=== PATIENT | female | born 1985 | race Caucasian/White ===

== ENCOUNTER 2019-08-14 17:51 | Inpatient (IN) | payer BC, SELFPAY ==
[2019-08-14] VITALS (7 sets, daily range): BP systolic 143–164; BP diastolic 94–108; PULSE 83–95; TEMP 36.9; BMI 38.0
--- NOTE | 2019-08-14 18:37 | LDADM ---
This patient, Asia Victor, was admitted to Labor/Delivery/Recovery 108 on 08/14/19 at 17:51. Plans for labor, pain management and were discussed with patient. Patient/family oriented to hospital policies and general routines including ID bracelet, bed and alarms, visiting hours, pain management, procedures, bathroom and other care routines, personal items, smoking policy, room service/diet and guest tray routines, security routines, and visiting hours. Patient/Family are encouraged to report perceived risks to care and to ask questions if they do not understand what they are told or what they should do. See OBIX for further documentation.
[2019-08-14] MEDS: DINOPROSTONE 10 MG VAG INSERT VAGINAL (19:09)
[2019-08-14 19:19] LABS: Basophils Percent Auto 0.2 % (0.2-1.2); Eosinophils Absolute Auto 0.5 K/mm3 (0-0.3); Eosinophils Percent Auto 4.8 % (0-4.4); Hematocrit 34.7 % (37.0-47.0); Hemoglobin 12.1 g/dL (12.0-15.0); Immature Granulocyte Absolute 0.09 K/mm3 (0.00-0.031); Immature Granulocyte Percent A 0.9 % (0-0.5); Lymphocytes Absolute Auto 2.05 K/mm3 (0.9-3.2); Lymphocytes Percent Auto 20.2 % (18.3-44.2); Mean Corpuscular HGB Conc 34.9 g/dl (32-36); Mean Corpuscular Hemoglobin 30.9 pg (26-34); Mean Corpuscular Volume 88.7 fl (80-100); Monocytes Absolute Auto 0.7 K/mm3 (0.1-0.6); Monocytes Percent Auto 6.8 % (2.6-8.5); Neutrophils Absolute Auto 6.8 K/mm3 (1.3-6.7); Neutrophils Percent Auto 67.1 % (45.5-73.1); Platelet Count Result 182 k/mm3 (150-375); Red Blood Count 3.91 M/mm3 (4.2-5.4); Red Cell Distribution Width 12.7 % (11.5-14.5); White Blood Count 10.1 K/mm3 (4.5-10.0)
[2019-08-14 20:08] LABS: Alanine Aminotransferase 27 U/L (4-35); Albumin Level 3.8 g/dL (3.5-5.1); Alkaline Phosphatase 192 U/L (38-126); Aspartate Amino Transferase 42 U/L (14-36); Bilirubin,Total 0.2 mg/dL (0.2-1.3); Blood Urea Nitrogen 10 mg/dL (7-17); Calcium 9.1 mg/dL (8.4-10.2); Carbon Dioxide 19 mmol/L (22-30); Chloride 106 mmol/L (98-107); Estimated CRCL calculation 124 ml/min; Estimated Glomerular Filt Rate > 60; Glucose 99 mg/dL (65-105); Potassium 4.4 mmol/L (3.4-5.0); Sodium 132 mmol/L (137-145)
[2019-08-14 20:09] LABS: Uric Acid 4.8 mg/dL (2.5-7.5)
[2019-08-15] VITALS (106 sets, daily range): BP systolic 128–174; BP diastolic 73–142; PULSE 78–152; TEMP 36.5–37.6; O2SAT 97–100
[2019-08-15] MEDS: NIFEdipine 10 MG CAPSULE (02:00)
[2019-08-15] MEDS: OXYTOCIN 30 UNITS/NS 500 ML 30 UNITS/500 ML BAG 6 UNITS IV CONT (05:38)
[2019-08-15] MEDS: LACTATED RINGERS 1,000 ML 125 ML IV CONT ×3 (05:38→12:38)
[2019-08-15] MEDS: ACETAMINOPHEN 500 MG TABLET 1000 MG PO (06:26)
[2019-08-15 07:21] LABS: Rapid Plasma Reagin Non-Reactive (NonReactive)
[2019-08-15] MEDS: LABETALOL HCL INJ 100 MG/20 ML VIAL 20 MG IV PUSH (07:35)
--- NOTE | 2019-08-15 08:27 | PM.IMHP ---
H&P: HPI History of Present Illness Chief complaint: iol Narrative: 33 y/o primigravida at 40 weeks gestation based on LMP 11/08/18 giving an EDC of 08/15/19. has had some intermittently elevated bp readings in the office, but these have always normalized on repeat measurement. No headaches, no visual field change, good movement. GBS neg. Ultrasound at 20 weeks showed mildly dilated right renal pelvis, but this had resolved by the 28 week ultrasound exam. She is here for induction of labor. Cervidil overnight, has been withdrawn. BP has been gradually increasing here, and she was given one dose of nifedipine 10 mg at 0200. BP initially responded, but has crept up again. Also she is now complaining of a frontal headache, mildly relieved by Tylenol. Review of Systems Review of Systems: All systems reviewed & are unremarkable except as noted in HPI and below PMFSH Family History Family History Mother Hypertension Grandparent Colon cancer Bone cancer Breast cancer Sibling Scoliosis Social History Social History Smoking status: Never smoker Substance use: never Spiritual care concerns: No Meds Home Medications and Allergies Home Medications Medication Instructions Recorded Confirmed Type pedi multivit no.140-iron fum 1 mg PO DAILY 07/16/19 08/14/19 History [Child Chewable Vitamn Complete] omeprazole magnesium [Prilosec OTC] 20 mg PO DAILY PRN 08/14/19 08/14/19 History Allergies Allergy/AdvReac Type Severity Reaction Status Date / Time adhesive Allergy Hives Verified 07/16/19 16:03 chicken derived Allergy Vomiting Verified 08/14/19 18:28 egg Allergy Vomiting Verified 07/16/19 16:03 Vital Signs Vital Signs - 24 hr 08/14/19 19:14 08/14/19 19:15 08/14/19 19:30 Temperature 36.9 C Pulse Rate 87 90 Blood Pressure 164/108 H 147/94 H 08/14/19 20:00 08/14/19 20:30 08/14/19 21:00 Temperature Pulse Rate 95 83 92 Blood Pressure 149/104 H 164/97 H 143/96 H 08/14/19 23:00 08/15/19 00:14 08/15/19 00:30 Temperature 36.9 C Pulse Rate 99 92 Blood Pressure 153/100 H 150/100 H 08/15/19 01:00 08/15/19 01:30 08/15/19 01:37 Temperature Pulse Rate 93 94 96 Blood Pressure 149/110 H 153/108 H 158/109 H 08/15/19 02:30 08/15/19 02:35 08/15/19 02:36 Temperature 36.5 C Pulse Rate 103 H 116 H Blood Pressure 170/114 H 149/109 H 08/15/19 03:10 08/15/19 03:12 08/15/19 03:48 Temperature Pulse Rate 111 H 103 H 96 Blood Pressure 165/115 H 161/107 H 152/102 H 08/15/19 04:01 08/15/19 04:59 08/15/19 05:30 Temperature 37.4 C Pulse Rate 100 110 H Blood Pressure 150/103 H 160/98 H 08/15/19 05:40 08/15/19 05:45 08/15/19 06:00 Temperature Pulse Rate 109 H 103 H 89 Blood Pressure 158/103 H 152/96 H 154/97 H 08/15/19 06:30 08/15/19 06:49 08/15/19 07:00 Temperature 37.1 C Pulse Rate 100 87 Blood Pressure 149/92 H 160/104 H 08/15/19 07:16 08/15/19 07:33 08/15/19 07:35 Temperature Pulse Rate 88 86 87 Blood Pressure 170/102 H 150/94 H 08/15/19 07:40 08/15/19 07:50 08/15/19 08:00 Temperature Pulse Rate 90 85 85 Blood Pressure 147/95 H 150/102 H 163/100 H 08/15/19 08:14 08/15/19 08:20 Temperature Pulse Rate 78 95 Blood Pressure 145/101 H 163/114 H Exam Const: Orientation/consciousness: patient oriented x3 Other: Well-developed, well-nourished female in no acute distress. BP 140-160/80-110. Otherwise, AVSS. Neck: Thyroid: thyroid normal Lymphatic: no lymphadenopathy noted (in neck, axilla or inguinal nodes) Resp: Effort & Inspection: normal respiratory effort Auscultation: clear to auscultation bilaterally Cardio: Rate: regular rate Rhythm: regular rhythm Heart sounds: S1 normal heart sound present and S2 normal heart sound present GI: Other: ABD: Soft, nontender, gravid. Vertex presentat
[2019-08-15 10:42] LABS: Add Urine Microscopic? YES; Appearance Urine Clear (Clear); Bacteria Urine Trace /hpf; Bilirubin Urine Negative (Negative); Blood Urine Negative (Negative); Color Urine Straw (Yellow); Glucose Urine UA Negative (Negative); Ketones Urine Negative (Negative); Leukocyte Esterase Ur Negative LEU/UL (Negative); Mucus Urine Rare /lpf; Nitrate Urine Negative (Negative); Protein Urine 3+ mg/dL (Negative); Specific Grav Ur 1.013 (1.001-1.035); Squamous Epithelial Cell Urine Rare /hpf (Few); Urobilinogen Urine Negative mg/dL (<2.0); WBC Urine 0-3 /hpf
[2019-08-15] MEDS: MAGNESIUM SULF 4 GM/WATER100ML 4 GM/100 ML BAG IVPB (12:39)
[2019-08-15] MEDS: MAGNESIUM SULF 20GM/WATER500ML 500 ML 50 MG IV CONT ×2 (13:06→22:55)
[2019-08-15] MEDS: SODIUM CHLORIDE 0.9% IV 300 ML 600 ML I-UTERINE (15:34)
[2019-08-15] MEDS: ONDANSETRON INJ 4 MG/2 ML VIAL IV PUSH (18:43)
--- NOTE | 2019-08-15 22:47 | PM.OBPNLAB ---
Pain Control Date/time seen: 08/15/19 22:47 Comments: Feels pressure. Has just started pushing. Pelvic Exam Dilation (cm): 10 Effacement (%): 100 station: +2 Contractions Contraction frequency: 3 Contraction pattern: Regular Status status: Category l Assessment and Plan Comments: Continue pushing. Anticipate .
[2019-08-15] MEDS: OXYTOCIN 30 UNITS/NS 500 ML 30 UNITS/500 ML BAG 125 UNITS IV CONT (23:51)
--- NOTE | 2019-08-15 23:54 | PM.OBPRVD ---
OB - Delivery Note Procedure Delivery date: 08/15/19 Procedure: Induction of labor with events: Pre-Eclampsia Intrapartal events: None Induction method: AROM, per pitocin protocol and other (Cervidil) Delivery monitor: external FHT, external uterine and internal uterine Route of delivery: Laceration description: Perineal - 2nd Degree Delivery repair: vicryl (3-0) Specimen: Yes (cord blood, placenta) Estimated blood loss (mL): 310 Anesthesia type: Local (1% lidocaine) Disposition: PACU Complications: None Narrative: 33 y/o G1 at 40 weeks gestation who presented to the hospital for induction of labor. Cervidil was placed overnight. Blood pressures increased and she developed a headache, which did improve with Fioricet. Oxytocin was administered intravenously. Amniotomy was performed with return of clear fluid. She received an epidural for pain control. She received IV magnesium sulfate for seizure prophylaxis. Her labor progressed and her cervix dilated completely. She pushed with good effort and delivered the 's head to the perineum, followed by the body. The nose and mouth were bulb suctioned. After a delay, the cord was clamped and cut. The infant was handed off the field. Cord blood was collected. The placenta delivered spontaneously and was grossly normal in appearance. The usual 3 vessel cord was noted. A second degree midline perineal laceration was sustained. This was infiltrated with 20mL of 1% lidocaine for additional anesthesia and reapproximated using 3 0 Vicryl in the usual layered fashion. Excellent hemostasis resulted as did excellent reapproximation of the normal anatomy. Needle and instrument counts were correct. The patient was taken to recovery room in stable condition. The went to the nursery in stable condition. I was present and scrubbed for the entire delivery. [place] Baby Date of : 08/15/19 Time of : 23:24 Weeks of gestation at delivery: 40 gender: Female Weight (pounds): 7 Weight (ounces): 7 presentation: vertex Placenta delivery description: Spontaneous and Normal Configuration cord vessel description: 3 Vessels score one minute: 8 score five minutes: 9
--- NOTE | 2019-08-15 23:58 | PM.OBDSVD ---
DS: Diagnosis Admitting Diagnosis Admitting Diagnosis: Encounter for supervision of normal , unspecified, unspecified trimester Discharge Diagnosis (1) Preeclampsia: Code(s): O14.90 - Unspecified pre-eclampsia, unspecified trimester Status: Acute (2) Term : Code(s): Z34.90 - Encounter for supervision of normal , unspecified, unspecified trimester Status: Acute (3) (normal spontaneous vaginal delivery): Code(s): O80 - Encounter for full-term uncomplicated delivery Status: Acute OB - DS: Summary OB Procedures : PIH Mgmt OB Procedures Intrapartum: Spontaneous Vag Delivery OB Procedures: : None Time Spent with Patient Time attestation: Total time spent providing and/or coordinating discharge services: DS: Data Data Completed and Pending Labs on day of discharge: Labs from last 24 hours 08/15/19 08/14/19 10:09 19:02 Urine Color Straw Urine Appearance Clear Urine pH 7.0 Ur Specific [place] 1.013 Urine Protein 3+ H Urine Glucose (UA) Negative Urine Ketones Negative Ur Blood (Man) Negative Urine Nitrate Negative Urine Bilirubin Negative Urine Urobilinogen Negative Leukocyte Esterase Rfl Negative Urine RBC 6-10 H Urine WBC 0-3 Ur Squamous Epith Cells Rare Urine Bacteria Trace Hyaline Casts 3-4 H Urine Mucus Rare RPR Non-reactive Discharge Plan Discharge Attending physician on discharge: Jose Angel Lino Discharging Clinician: Jose Angel Lino Patient Disposition: Home, Self-Care Activity: pelvic rest Diet: regular Discharge Instructions: Call or return if temperature above 100.4? F, increased abdominal pain, increased vaginal bleeding or any new problems. Stand Alone Forms: General Discharge Information Follow-up/Referrals: Jose Angel Lino MD [Physician] - (6 weeks) Discharge Medications: New ibuprofen 600 mg tablet 600 mg PO Q6H PRN (Reason: cramps) Qty: 30 RF: 0 ferrous sulfate 325 mg (65 mg iron) tablet 325 mg PO DAILY Qty: 30 RF: 0 No Action Child Chewable Vitamn Complete 18 mg iron Tablet,Chewable 1 mg PO DAILY RF: 0 omeprazole magnesium [Prilosec OTC] 20 mg Tablet,Delayed Release (Dr/Ec) 20 mg PO DAILY PRN (Reason: Acid Reflux) RF: 0 Date of admission: 05/14/20 17:51 Primary Care Provider: Paul,Tomasa Cohen Admitting Provider: Jose Angel Lino Attending physician on admission: Jose Angel Lino
[2019-08-16] VITALS (15 sets, daily range): BP systolic 108–155; BP diastolic 66–105; PULSE 89–123; RESP 12–16; TEMP 36.6–37; O2SAT 97–100
[2019-08-16] MEDS: IBUPROFEN 600 MG TABLET PO ×2 (01:03→16:41)
[2019-08-16] MEDS: LACTATED RINGERS 1,000 ML 75 ML IV CONT ×2 (01:57→12:40)
[2019-08-16] MEDS: WITCH HAZEL 40 PADS 1 PAD TOPICAL (01:57)
[2019-08-16] MEDS: BENZOCAINE 20% AER SPR (*SP) 56 GM CAN 1 SPRAY TOPICAL (01:57)
--- NOTE | 2019-08-16 02:17 | PC.NURSE ---
This patient, Asia Victor, was received from Labor and Delivery on 08/16/19 at 0217. Personal belongings list checked and signed. Patient/family oriented to unit policies and routines
[2019-08-16 06:06] LABS: Basophils Percent Auto 0.2 % (0.2-1.2); Hematocrit 25.2 % (37.0-47.0); Hemoglobin 8.6 g/dL (12.0-15.0); Immature Granulocyte Absolute 0.14 K/mm3 (0.00-0.031); Immature Granulocyte Percent A 0.6 % (0-0.5); Immature Platelet Fraction Pct 11.2 % (0.9-11.2); Lymphocytes Absolute Auto 1.52 K/mm3 (0.9-3.2); Lymphocytes Percent Auto 6.5 % (18.3-44.2); Mean Corpuscular HGB Conc 34.1 g/dl (32-36); Mean Corpuscular Hemoglobin 30.8 pg (26-34); Mean Corpuscular Volume 90.3 fl (80-100); Mean Platelet Volume 13.3 fl (7.4-10.4); Monocytes Absolute Auto 1.1 K/mm3 (0.1-0.6); Monocytes Percent Auto 4.8 % (2.6-8.5); Neutrophils Absolute Auto 20.5 K/mm3 (1.3-6.7); Neutrophils Percent Auto 87.9 % (45.5-73.1); Platelet Count Result 170 k/mm3 (150-375); Red Blood Count 2.79 M/mm3 (4.2-5.4); Red Cell Distribution Width 12.7 % (11.5-14.5); White Blood Count 23.3 K/mm3 (4.5-10.0)
[2019-08-16 06:40] LABS: Alanine Aminotransferase 28 U/L (4-35); Albumin Level 2.5 g/dL (3.5-5.1); Alkaline Phosphatase 147 U/L (38-126); Aspartate Amino Transferase 47 U/L (14-36); Bilirubin,Total 0.1 mg/dL (0.2-1.3); Blood Urea Nitrogen 13 mg/dL (7-17); Calcium 6.6 mg/dL (8.4-10.2); Carbon Dioxide 18 mmol/L (22-30); Chloride 102 mmol/L (98-107); Estimated CRCL calculation 110 ml/min; Estimated Glomerular Filt Rate > 60; Glucose 129 mg/dL (65-105); Potassium 3.9 mmol/L (3.4-5.0); Sodium 128 mmol/L (137-145)
[2019-08-16] MEDS: MULTIVIT/MIN/PREN/FOL AC/IRON TABLET 1 TAB PO (07:50)
[2019-08-16] MEDS: DOCUSATE SODIUM 100 MG CAPSULE PO ×2 (07:50→16:41)
[2019-08-16] MEDS: POLYSACCHARIDE IRON COMPLEX 150 MG CAPSULE PO ×2 (07:50→16:41)
--- NOTE | 2019-08-16 09:19 | WPDANLDPN2 ---
Anes-Prog Note L&D Date/Time: 08/16/19 09:19 Comfortable throughout: labor and delivery Neuraxial method: epidural Epidural/Spinal procedure site: clean & non-tender Neuro status: Neuro function grossly intact. Cardiovascular status: normal Respiratory status: normal Airway patency: baseline Mental status: baseline Post-Op hydration status: normal Vital Signs: Last Vital Signs Temp 98.7 F 08/15/19 21:08 Pulse 105 H 08/16/19 01:45 BP 140/90 08/16/19 01:45 Pulse Ox 98 08/15/19 10:04 I/O: Intake & Output 08/15/19 08/16/19 08/16/19 23:59 07:59 15:59 Intake Total 1000 1400 Output Total 1168 Balance 1000 232 Patient feedback: Patient satisfied with anesthetic care.
[2019-08-16] MEDS: MAGNESIUM SULF 20GM/WATER500ML 500 ML 25 MG IV CONT (09:52)
[2019-08-16] MEDS: MAGNESIUM SULF 20GM/WATER500ML 500 ML 50 MG IV CONT (09:52)
[2019-08-17] MEDS: ACETAMINOPHEN 325 MG TABLET 650 MG PO (04:35)
[2019-08-17] MEDS: IBUPROFEN 600 MG TABLET PO (04:35)
[2019-08-17 04:41] VITALS: BP 142/97; PULSE 104; RESP 16; O2SAT 100
[2019-08-17 07:30] VITALS: BP 136/94; PULSE 97; RESP 16; TEMP 36.7; O2SAT 98
[2019-08-17] MEDS: DOCUSATE SODIUM 100 MG CAPSULE PO (07:30)
[2019-08-17] MEDS: POLYSACCHARIDE IRON COMPLEX 150 MG CAPSULE PO (07:30)
[2019-08-17] MEDS: MULTIVIT/MIN/PREN/FOL AC/IRON TABLET 1 TAB PO (07:30)
--- NOTE | 2019-08-17 11:07 | PM.OBPNVD ---
OB - PN: Subj Subjective Date/time seen: 08/17/19 11:07 Narrative: Pain OK. Would like to go home. OB - PN: Obj Data Labs CBC & Chem 7: 08/16/19 05:52 08/16/19 05:52 OB - PN A/P Plan Comments: A: PPD#2, doing well. Preeclampsia resolving. BP OK without meds. P: Home to f/u bp check in 1-2 days, f/u exam in office in 6 weeks. Exam Psych: Other: AVSS I/O great ABD soft, nontender, fundus firm EXT nontender
--- NOTE | 2019-08-17 14:22 | PC.NURSE ---
Patient viewed the discharge video Mother & Baby Care, The First Two Weeks . Patient was given the opportunity and encouraged to ask questions. Patient verbalized understanding of information shared and has been given the mother/baby guide for home reference.
[2019-08-18 08:32] VITALS: BP 151/96; PULSE 100; RESP 18; TEMP 36.7
== END 2019-08-17 14:50 | disposition home or self-care (01) | DRG 807 ==
LOC: ANHLDR 08-15 23:59 → ANHOB2 08-16 02:54
PROVIDERS: Admitting Provider Obstetrics & Gynecology; PCP Family Medicine; Visit Provider Obstetrics & Gynecology
DX: O13.4 Gestational [pregnancy-induced] hypertension without significant proteinuria, complicating childbirth (principal); Z37.0 Single live birth; O14.04 Mild to moderate pre-eclampsia, complicating childbirth; Z3A.40 40 weeks gestation of pregnancy; O76 Abnormality in fetal heart rate and rhythm complicating labor and delivery; O70.1 Second degree perineal laceration during delivery
CPT/HCPCS: 36415; 80053; 81001; 84550; 85025; 85055; 86592; 86850; 86900; 86901; 88307; A9270; J2405; J2590; J2795; J3475; J7030; J7120

== ENCOUNTER 2022-05-15 15:54 | Emergency (ER) | payer OTHER, SELFPAY ==
[2022-05-15 16:00] VITALS: BP 138/90; PULSE 74; RESP 20; TEMP 37; O2SAT 100
--- NOTE | 2022-05-15 16:24 | ED.URI ---
HPI - URI/Sore Throat General Chief Complaint: Upper Respiratory Infection Stated Complaint: Runny Nose/Body Aches Time Seen by Provider: 05/15/22 16:24 Source: patient, RN notes reviewed and old records reviewed Mode of arrival: ambulatory Limitations: no limitations History of Present Illness HPI Narrative: 36 year old female who presents to [facility] care with complaints of sore throat, low grade fevers,cold sweats,headache,and body aches for the past 3 days. Patient reports that she has 2 children at home with strep throat. Patient reports that she has been taking Tylenol for her symptoms. Patient denies any cough or any shortness of breath.Patient reports that she has had COVID vaccination and has already had flu this year. MD elicited complaint: sore throat Onset (ago): day(s) (3) Pain scale (0-10): 5 Able to tolerate fluids by mouth: Yes Treatments prior to arrival: acetaminophen Related Data Allergies Allergy/AdvReac Type Severity Reaction Status Date / Time paraben Allergy Mild Unknown Verified 05/15/22 16:17 adhesive Allergy Hives Verified 05/15/22 16:17 chicken derived Allergy Vomiting Verified 05/15/22 16:17 egg Allergy Vomiting Verified 05/15/22 16:17 Review of Systems Review of Systems: CONSTITUTIONAL: Reports malaise, chills, sweats, or fever. EYES: Denies visual changes, redness, or discharge. ENT: Reports rhinorrhea, congestion, no sinus pain,no otalgia positive sore throat. CARDIOVASCULAR: Denies chest pain, palpitations, or edema. RESPIRATORY: Reports no cough.? Denies dyspnea. GASTROINTESTINAL: Denies abdominal pain, nausea, vomiting, diarrhea SKIN: Denies rash or itching. MUSCULOSKELETAL: positive for myalgia. NEUROLOGIC: Positive headache. All systems reviewed & are unremarkable except as noted in HPI and below PMFSH Past Medical History Medical History (Updated 05/16/22 @ 21:53 by Magda Sepulveda NP) Dermatographism Environmental allergies Family History Family History Mother Hypertension Grandparent Colon cancer Bone cancer Breast cancer Sibling Scoliosis Mother Hypertension Grandparent Family history of malignant neoplasm of breast Social History Social History (Updated 05/16/22 @ 21:54 by Magda Sepulveda NP) Smoking status: Never smoker Alcohol intake: current Substance use: never Living arrangements: with family Gender identity (if verbalized by the patient): Female Spiritual care concerns: No Comments At time of signature, agree with nursing past medical, surgical, social and family history. There is no relevant family history pertinent to the presenting complaint Exam Narrative: GENERAL: Well-appearing, well-nourished, and in no acute distress. HEAD: Normocephalic EYES: PERRLA, conjunctivae clear ENT: Nares clear, turbinates edematous and erythematous, clear discharge. Mucous membranes moist. TM pearly ocampo with dull light reflex bilaterally; no tragal tenderness. Oropharynx erythematous without lesions. Tonsils red enlarged and without exudate, no drooling, no hoarseness, no trismus, uvula midline.painful swallowing NECK: Supple. lymphadenopathy CHEST: Clear to auscultation, breath sounds equal. No wheezing, rhonchi, rales, or stridor. No respiratory distress, speaks in full sentences.no cough, SAO2 100% on room air HEART: Regular rate and rhythm. No murmur heard. SKIN: Warm, dry, no rash. NEURO: Alert and oriented x3. PSYCH: Normal mood and affect Course Course Emergency Course: Patient is aware of diagnosis, understands and agrees to treatment plan.? Anticipatory guidance given.? Patient agrees to follow-up as directed and is aware of reasons to seek care at the emergency department. Portions of this record may have been created with voice recognition software Level of Care: Express Care Visit Vital Signs Vital signs: Vital Signs Temperature 37.0 C
--- NOTE | 2022-05-15 16:46 | ED.URI ---
HPI - URI/Sore Throat General Chief Complaint: Upper Respiratory Infection Stated Complaint: Runny Nose/Body Aches Time Seen by Provider: 05/15/22 16:24 Source: patient, RN notes reviewed and old records reviewed Mode of arrival: ambulatory Limitations: no limitations History of Present Illness MD elicited complaint: cough and sore throat Treatments prior to arrival: acetaminophen Related Data Allergies Allergy/AdvReac Type Severity Reaction Status Date / Time paraben Allergy Mild Unknown Verified 05/15/22 16:17 adhesive Allergy Hives Verified 05/15/22 16:17 chicken derived Allergy Vomiting Verified 05/15/22 16:17 egg Allergy Vomiting Verified 05/15/22 16:17 Review of Systems Review of Systems: CONSTITUTIONAL: Denies malaise, chills, sweats, or fever. EYES: Denies visual changes, redness, or discharge. ENT: Reports rhinorrhea, congestion, sinus pain, otalgia and sore throat. CARDIOVASCULAR: Denies chest pain, palpitations, or edema. RESPIRATORY: Reports cough.? Denies dyspnea. GASTROINTESTINAL: Denies abdominal pain, nausea, vomiting, diarrhea SKIN: Denies rash or itching. MUSCULOSKELETAL: Denies myalgia. NEUROLOGIC: Denies headache. All systems reviewed & are unremarkable except as noted in HPI and below PMFSH Family History Family History (System 10/07/19 @ 13:31 by Nati Márquez) Mother Hypertension Grandparent Colon cancer Bone cancer Breast cancer Sibling Scoliosis Mother Hypertension Grandparent Family history of malignant neoplasm of breast Social History Social History (System 10/07/19 @ 13:31 by Nati Márquez) Smoking status: Never smoker Alcohol intake: current Substance use: never Spiritual care concerns: No Comments At time of signature, agree with nursing past medical, surgical, social and family history. There is no relevant family history pertinent to the presenting complaint Exam Narrative: GENERAL: Well-appearing, well-nourished, and in no acute distress. HEAD: Normocephalic EYES: PERRLA, conjunctivae clear ENT: Nares clear, turbinates edematous and erythematous, clear discharge. Mucous membranes moist. TM pearly ocampo with dull light reflex bilaterally; no tragal tenderness. Oropharynx erythematous without lesions. Tonsils not enlarged and without exudate, no drooling, no hoarseness, no trismus, uvula midline. NECK: Supple. No lymphadenopathy CHEST: Clear to auscultation, breath sounds equal. No wheezing, rhonchi, rales, or stridor. No respiratory distress, speaks in full sentences. HEART: Regular rate and rhythm. No murmur heard. SKIN: Warm, dry, no rash. NEURO: Alert and oriented x3. PSYCH: Normal mood and affect Course Course Emergency Course: Patient is aware of diagnosis, understands and agrees to treatment plan.? Anticipatory guidance given.? Patient agrees to follow-up as directed and is aware of reasons to seek care at the emergency department. Portions of this record may have been created with voice recognition software Level of Care: Express Care Visit Vital Signs Vital signs: Vital Signs Temperature 37.0 C 05/15/22 16:00 Pulse Rate 74 05/15/22 16:00 Respiratory Rate 20 05/15/22 16:00 Blood Pressure 138/90 05/15/22 16:00 Pulse Oximetry 100 05/15/22 16:00 Oxygen Delivery Room Air 05/15/22 16:00 Temperature 37.0 C 05/15/22 16:00 Pulse Rate 74 05/15/22 16:00 Respiratory Rate 20 05/15/22 16:00 Blood Pressure 138/90 05/15/22 16:00 Pulse Oximetry 100 05/15/22 16:00 Oxygen Delivery Room Air 05/15/22 16:00 Reviewed MDM - URI/Sore Throat MDM Narrative Medical decision making narrative: Differential diagnosis considered: Walker virus, strep pharyngitis, allergic rhinitis, upper respiratory tract infection, sinusitis, rhinosinusitis, nasopharyngitis. viral pharyngitis, otitis media, otitis externa, pneumonia, bronchitis, viral cough syndrome, viral syndrome, and inf
== END 2022-05-15 16:53 | disposition home or self-care (01) ==
PROVIDERS: Emergency Provider Registered Nurse; PCP Family Medicine
DX: J03.90 Acute tonsillitis, unspecified (principal)
CPT/HCPCS: 87081; 87880; 99213; G0463

== ENCOUNTER 2024-02-03 09:14 | Outpatient (CLI) | payer OTHER, SELFPAY ==
[2024-02-03 10:48] LABS: Add Urine Microscopic? YES; Appearance Urine Clear (Clear); Bacteria Urine None Seen /hpf; Bilirubin Urine Negative (Negative); Blood Urine 2+ (Negative); Color Urine Yellow (Yellow); Glucose Urine UA Negative (Negative); Ketones Urine Negative (Negative); Leukocyte Esterase Ur 2+ LEU/UL (Negative); Need Manual Microscopic Reviewed; Nitrate Urine Negative (Negative); Protein Urine Negative (Negative); Specific Grav Ur 1.005 (1.001-1.035); Squamous Epithelial Cell Urine Occasional /hpf (Few); Urobilinogen Urine 0.2 mg/dL (<2.0); WBC Urine 0-5 /hpf (0-3)
--- NOTE | 2024-02-03 11:07 | PM.OBTRLD ---
OB - Triage/Final Diagnosis Visit Information Date of evaluation: 02/03/24 Reason for evaluation: threatened labor Comments/Additional reasons for admission: I have assessed the risk for this patient, Asia Victor, and determined that she would benefit from observation care. Evaluation Laboratory results: Laboratory Tests 02/03/24 10:26 Urine Color Yellow Urine Appearance Clear Urine pH 7.0 Ur Specific [place] 1.005 Urine Protein Negative Urine Glucose (UA) Negative Urine Ketones Negative Ur Blood (Man) 2+ H Urine Nitrate Negative Urine Bilirubin Negative Urine Urobilinogen 0.2 Add Ur Microanalysis Reviewed Leukocyte Esterase Rfl 2+ H Urine RBC 3-5 H Urine WBC 0-5 Ur Squamous Epith Cells Occasional Urine Bacteria None seen Urine Casts 3-5
[2024-02-03 11:24] VITALS: BP 136/85; PULSE 87
[2024-02-03 11:29] LABS: OBXCEM ROM Plus Negative (Negative)
== END 2024-02-03 10:40 | disposition home or self-care (01) ==
LOC: ANHOBOP 10:05 → ANHLDR 10:06
PROVIDERS: Obstetrics & Gynecology; PCP Family Medicine; Visit Provider Obstetrics & Gynecology
DX: O42.90 Premature rupture of membranes, unspecified as to length of time between rupture and onset of labor, unspecified weeks of gestation (principal); Z3A.00 Weeks of gestation of pregnancy not specified
CPT/HCPCS: 59025; 81001; 84112; 87086

== ENCOUNTER 2024-02-04 03:23 | Inpatient (IN) | payer OTHER, SELFPAY ==
[2024-02-04] VITALS (204 sets, daily range): BP systolic 105–183; BP diastolic 71–130; PULSE 75–121; RESP 16; TEMP 36.6–37.4; O2SAT 95–100; BMI 37.2
--- NOTE | 2024-02-04 03:42 | LDADM ---
This patient, Asia Victor, was admitted to Labor/Delivery/Recovery 105 on 02/04/24 at 03:23. Plans for labor, pain management and were discussed with patient. Patient/family oriented to hospital policies and general routines including ID bracelet, bed and alarms, visiting hours, pain management, procedures, bathroom and other care routines, personal items, smoking policy, room service/diet and guest tray routines, infant security routines, and visiting hours. Patient/Family are encouraged to report perceived risks to care and to ask questions if they do not understand what they are told or what they should do. See OBIX for further documentation.
[2024-02-04] MEDS: AMPICILLIN 2 GM/NS 100 ML 2 GM/100 ML BAG IVPB (03:45)
[2024-02-04] MEDS: LACTATED RINGERS 1,000 ML 125 ML IV CONT ×2 (03:45→11:01)
[2024-02-04 04:17] LABS: Basophils Percent Auto 0.3 % (0.2-1.2); Eosinophils Absolute Auto 0.6 K/mm3 (0-0.3); Eosinophils Percent Auto 4.8 % (0-4.4); Hematocrit 32.5 % (37.0-47.0); Hemoglobin 11.3 g/dL (12.0-15.0); Immature Granulocyte Absolute 0.13 K/mm3 (0.00-0.031); Immature Granulocyte Percent A 1.1 % (0-0.5); Lymphocytes Absolute Auto 2.85 K/mm3 (0.9-3.2); Lymphocytes Percent Auto 23.9 % (18.3-44.2); Mean Corpuscular HGB Conc 34.8 g/dl (32-36); Mean Corpuscular Hemoglobin 30.6 pg (26-34); Mean Corpuscular Volume 88.1 fl (80-100); Mean Platelet Volume 12.7 fl (7.4-10.4); Monocytes Absolute Auto 0.8 K/mm3 (0.1-0.6); Monocytes Percent Auto 6.4 % (2.6-8.5); Neutrophils Absolute Auto 7.6 K/mm3 (1.3-6.7); Neutrophils Percent Auto 63.5 % (45.5-73.1); Platelet Count Result 191 k/mm3 (150-375); Red Blood Count 3.69 M/mm3 (4.2-5.4); Red Cell Distribution Width 13.2 % (11.5-14.5); White Blood Count 11.9 K/mm3 (4.5-10.0)
[2024-02-04 05:04] LABS: Rapid Plasma Reagin Non-Reactive (NonReactive)
[2024-02-04 05:07] LABS: HIV 1/2 Ab P24 Ag Result Negative (Negative)
--- NOTE | 2024-02-04 05:18 | P.PNAN_ITS ---
Anes - Initial Pre Proc Eval Date/Time: 02/04/24 05:18 Surgeon: Jose Angel Lino MD Pre Op Diagnosis: Labor Patient Data Age: 38 Gender: F Height: 1.68 m Weight: 104.6 kg Last Vital Signs Pulse 89 02/04/24 05:16 BP 165/98 H 02/04/24 05:16 Pulse Ox 99 02/04/24 05:17 O2 Del Method Room Air 02/04/24 03:41 Allergies Allergy/AdvReac Type Severity Reaction Status Date / Time paraben Allergy Mild Unknown Verified 05/15/22 16:17 adhesive Allergy Hives Verified 05/15/22 16:17 chicken derived Allergy Vomiting Verified 05/15/22 16:17 egg Allergy Vomiting Verified 05/15/22 16:17 Home Medications Medication Instructions Recorded Confirmed Type amoxicillin 875 mg tablet 875 mg PO Q12H #20 tabs 05/15/22 Rx Laboratory Tests 02/04/24 03:46 WBC 11.9 H K/mm3 (4.5-10.0) RBC 3.69 L M/mm3 (4.2-5.4) Hgb 11.3 L g/dL (12.0-15.0) Hct 32.5 L % (37.0-47.0) MCV 88.1 fl (80-100) MCH 30.6 pg (26-34) MCHC 34.8 g/dl (32-36) RDW 13.2 % (11.5-14.5) Plt Count 191 k/mm3 (150-375) MPV 12.7 H fl (7.4-10.4) Immature Gran % (Auto) 1.1 H % (0-0.5) Neut % (Auto) 63.5 % (45.5-73.1) Lymph % (Auto) 23.9 % (18.3-44.2) [place] % (Auto) 6.4 % (2.6-8.5) Eos % (Auto) 4.8 H % (0-4.4) Baso % (Auto) 0.3 % (0.2-1.2) Lymph # (Auto) 2.85 K/mm3 (0.9-3.2) Leslie # (Auto) 0.8 H K/mm3 (0.1-0.6) Eos # (Auto) 0.6 H K/mm3 (0-0.3) Baso # (Auto) 0.0 K/mm3 (0.0-0.1) Abs Immat Gran (auto) 0.13 H K/mm3 (0.00-0.031) Absolute Neuts (auto) 7.6 H K/mm3 (1.3-6.7) Absolute Nucleated RBC 0.000 K/mm3 (0.0-0.012) Nucleated RBC % 0.0 % (0.0-0.2) RPR Non-reactive (NonReactive) HIV 1&2 Ab/P24 Ag 4thGn Negative (Negative) Blood Type A Positive Antibody Screen Negative Patient hx anesthesia problems: none Family hx anesthesia problems: none Results Review: All pre-operative results and documents have been reviewed as part of the pre- operative evaluation. [facility] Past Medical History Medical History Dermatographism Environmental allergies Family History Family History Mother Hypertension Grandparent Colon cancer Bone cancer Breast cancer Sibling Scoliosis Mother Hypertension Grandparent Family history of malignant neoplasm of breast Social History Social History Smoking status: Never smoker Second hand tobacco smoke exposure: No Alcohol intake: current Substance use: never Do You Feel Safe in your Home?: Yes Lack of Transportation: No Lack of Food: Never True Current Housing: I Have Housing Concerned About Future Housing: No Difficulty Paying Gas/Electric Bills: No Difficulty Paying for Meds: No Currently Unemployed: No Education: Bachelor's Degree Difficulty w/ Childcare or Family Care: No Living arrangements: with family Gender identity (if verbalized by the patient): Female Spiritual care concerns: No Anes - Eval Final PreProcedure Day of Procedure 02/04/24 05:18 Patient weight: obese Heart: regular rate and rhythm Neurological: alert and oriented ASA classification: II Emergent: no Anesthetic plan: proceed Anesthesia type and monitoring: regional epidural and standard monitoring Results Review: All pre-operative results and documents have been reviewed as part of the pre- operative evaluation. Informed Consent: The patient's anesthetic plan and its attendant risks and benefits were discussed with the patient/family/POA. Questions were solicited and answers provided to the satisfaction of the patient/family/POA.
[2024-02-04] MEDS: LABETALOL HCL 100 MG TABLET 200 MG PO ×2 (05:56→15:09)
[2024-02-04] MEDS: AMPICILLIN 1 GM/NS 50 ML 1 GM/50 ML BAG IVPB ×2 (08:31→12:19)
--- NOTE | 2024-02-04 08:39 | WPDOBADMIT ---
Obstetrics - Admit Note Admission Note: record reviewed. Additions to the history and/or subsequent changes in the physical findings follow. 38 y/o at 39 3/7 weeks here with contractions. Now comfortable with epidural. GBS pos, receiving ampicillin. History of induction of labor at 40 weeks for preeclampsia in prior . Some elevated bp on admission in the context of painful contractions. She received labetalol 200 mg po x 1 from the simulation developer physician. BP has been OK since. No headache or visual field change. She had been triaged yesterday for false labor and sent home. Last ultrasound exam in office 3 weeks ago showed EFW 7#15oz (>90th percentile). First baby weighed 7#7oz at delivery. AVSS NST reactive TOCO: irregular contractions ABD soft, nontender, gravid, vertex EXT nontender Cervix 6/90/-1. AROM with clear fluid. Vertex. A: IUP at term with labor. GBS pos. Elevated bp initially, now normotensive. P: Ampicillin. Watch bp. Augment labor as needed. Anticipate .
--- NOTE | 2024-02-04 11:52 | PM.OBPNLAB ---
Pain Control Date/time seen: 02/04/24 11:52 Comments: Feels some pain with contractions in the right lateral abdomen, remote from the RUQ. Feels better to push on it, she says. Otherwise, epidural functioning well. Pelvic Exam Dilation (cm): 7 Effacement (%): 90 station: -1 Comments: IUPC placed. Contractions Contraction frequency: 3 Contraction pattern: Irregular Status status: Category l Assessment and Plan Comments: Continue labor. Augment as needed.
[2024-02-04] MEDS: OXYTOCIN 30 UNITS/NS 500 ML 30 UNITS/500 ML BAG IV CONT (11:57)
[2024-02-04] MEDS: ONDANSETRON INJ 4 MG/2 ML VIAL IV PUSH (12:14)
--- NOTE | 2024-02-04 14:16 | PM.OBPRVD ---
OB - Vaginal Delivery Note Procedure Delivery date: 02/04/24 Events: Positive Group B Strep (GBS) and Other (Labor at term) Induction method: None Delivery augmentation: Rupture of Membranes and Pitocin Delivery monitor: External FHT, External Uterine and Internal Uterine Route of delivery: Episiotomy description: None Laceration Description: Perineal - 2nd Degree and Labial Delivery repair: vicryl (3-0) Specimen: Yes (cord blood) Quantitative Blood Loss (ml): 80 Anesthesia type: Epidural Disposition: PACU Complications: None Narrative: 38 y/o at 39 3/7 weeks gestation who presented to the hospital with contractions. Labor was diagnosed. She was given ampicillin for GBS colonization. Amniotomy was performed with return of clear fluid. She received an epidural for pain control. Labor was augmented with oxytocin. Her labor progressed and her cervix dilated completely. She pushed with good effort and delivered the 's head to the perineum, followed by the body. The nose and mouth were bulb suctioned. After a delay, the cord was clamped and cut. The infant was handed off the field. Cord blood was collected. The placenta delivered spontaneously and was grossly normal in appearance. The usual 3 vessel cord was noted. A second degree midline perineal laceration was sustained. This was reapproximated using 3 0 Vicryl in the usual layered fashion. A left labial laceration was reapproximated with a single figure of eight suture of the same material. Excellent hemostasis resulted as did excellent reapproximation of the normal anatomy. Needle and instrument counts were correct. The patient was taken to recovery room in stable condition. The infant went to the nursery in stable condition. I was present and scrubbed for the entire delivery. Baby Date of : 02/04/24 Time of : 13:54 Gestational Age by Date: 39 gender: Female presentation: vertex position: Left Occiput Anterior Placenta delivery description: Spontaneous and Normal Configuration Cord Vessel Description: 3 Vessels, Nuchal Cord and Delayed Cord Clamping score one minute: 9 score five minutes: 9
--- NOTE | 2024-02-04 14:18 | PM.OBDSVD ---
DS: Admitting Diagnosis Discharge Date 02/06/24 Admitting Diagnosis IUP at 39 3/7 weeks Labor GBS colonization DS: Discharge Diagnosis Discharge Diagnosis (1) (normal spontaneous vaginal delivery): Code(s): O80 - Encounter for full-term uncomplicated delivery Status: Acute (2) GBS (group B Streptococcus carrier), +RV culture, currently : Code(s): O99.820 - Streptococcus B carrier state complicating Status: Acute OB - DS: Summary OB Procedures : None OB Procedures Intrapartum: Spontaneous Vag Delivery and GBS prophylaxis OB Procedures: : None Peripartum Data Laceration Description: Perineal - 2nd Degree and Labial Episiotomy description: None Time Spent with Patient Time attestation: Total time spent providing and/or coordinating discharge services: DS: Data Data Completed and Pending Labs on day of discharge: Labs from last 24 hours 02/04/24 03:46 WBC 11.9 H RBC 3.69 L Hgb 11.3 L Hct 32.5 L MCV 88.1 MCH 30.6 MCHC 34.8 RDW 13.2 Plt Count 191 MPV 12.7 H Immature Gran % (Auto) 1.1 H Neut % (Auto) 63.5 Lymph % (Auto) 23.9 [place]field % (Auto) 6.4 Eos % (Auto) 4.8 H Baso % (Auto) 0.3 Lymph # (Auto) 2.85 Whitfield # (Auto) 0.8 H Eos # (Auto) 0.6 H Baso # (Auto) 0.0 Abs Immat Gran (auto) 0.13 H Absolute Neuts (auto) 7.6 H Absolute Nucleated RBC 0.000 Nucleated RBC % 0.0 RPR Non-reactive HIV 1&2 Ab/P24 Ag 4thGn Negative Blood Type A Positive Antibody Screen Negative Discharge Plan Discharge Attending physician on discharge: Jose Angel Lino Discharging Clinician: Jose Angel Lino Patient Disposition: Home, Self-Care Activity: pelvic rest Diet: regular Discharge Instructions: Call or return if temperature above 100.4? F, increased abdominal pain, increased vaginal bleeding or any new problems. Stand Alone Forms: General Discharge Information Follow-up/Referrals: Jose Angel Lino MD [Physician] - 6 Weeks Discharge Medications: New ibuprofen 600 mg tablet 600 mg PO Q6H PRN (Reason: cramps) Qty: 30 0RF ferrous sulfate 325 mg (65 mg iron) tablet 325 mg PO DAILY Qty: 30 0RF hydrocodone-acetaminophen 5-325 mg tablet 1 tablet PO Q6H PRN (Reason: pain) Qty: 10 0RF Discontinued Adult Low Dose Aspirin 81 mg PO DAILY Date of admission: 02/04/24 03:23 Primary Care Provider: Ab Martinez Admitting Provider: Jose Angel Lino Attending physician on admission: Jose Angel Lino Condition: Stable
[2024-02-04] MEDS: OXYTOCIN 30 UNITS/NS 500 ML 30 UNITS/500 ML BAG 125 UNITS IV CONT (14:31)
[2024-02-04] MEDS: IBUPROFEN 600 MG TABLET PO ×2 (15:36→20:56)
[2024-02-04] MEDS: WITCH HAZEL 40 PADS 1 PAD TOPICAL (15:37)
[2024-02-04] MEDS: BENZOCAINE 20% AER SPR (*SP) 56 GM CAN 1 SPRAY TOPICAL (15:37)
[2024-02-04] MEDS: HYDROcodone/acetaminophen (*CRX) 5-325 MG TABLET 1 TAB PO (16:12)
--- NOTE | 2024-02-04 20:40 | PC.NURSE ---
1656. Patient transferred to post room #281 via stretcher, infant also with mom in crib. Support person present. Oriented to unit, room, information board, rooming in, admission packet and security measures. Patient verbalizes understanding.
[2024-02-04] MEDS: ACETAMINOPHEN 325 MG TABLET 650 MG PO (20:55)
[2024-02-05] MEDS: IBUPROFEN 600 MG TABLET PO ×2 (03:22→16:47)
[2024-02-05] MEDS: ACETAMINOPHEN 325 MG TABLET 650 MG PO (03:23)
[2024-02-05 05:11] LABS: Hematocrit 28.9 % (37.0-47.0); Hemoglobin 9.6 g/dL (12.0-15.0)
[2024-02-05 05:26] LABS: Alanine Aminotransferase 18 U/L (6-35); Albumin Level 2.9 g/dL (3.5-5.1); Alkaline Phosphatase 99 U/L (38-126); Anion Gap 8 mmol/L (4-12); Aspartate Amino Transferase 29 U/L (14-36); Bilirubin,Total 0.2 mg/dL (0.2-1.3); Blood Urea Nitrogen 9 mg/dL (7-17); Calcium 8.2 mg/dL (8.4-10.2); Carbon Dioxide 19 mmol/L (22-30); Chloride 107 mmol/L (98-107); Estimated CRCL calculation 159 ml/min; Estimated Glomerular Filt Rate > 60; Glucose 126 mg/dL (65-110); Potassium 4.1 mmol/L (3.4-5.0); Sodium 134 mmol/L (137-145); Uric Acid 3.8 mg/dL (2.5-7.5)
[2024-02-05 07:55] VITALS: BP 126/89; PULSE 83; RESP 16; TEMP 36.7; O2SAT 99
--- NOTE | 2024-02-05 08:00 | PC.NURSE ---
Introductions were made, then consulted with patient to assess needs related to . Discussed with mother her?plans to feed?her and the?experience so far. She pumped and bottle fed her first baby because it gave her peace of mind to see the volumes baby was taking. She is uncertain if she wants to exclusively put baby to breast or pump and bottle feed. Resources provided for inpatient and outpatient services with the feeding sheet, mom/baby guide and name/number written on the communication board. Mother voiced understanding of information and will call if there is a request for assistance. Reported to the Primary RN.
--- NOTE | 2024-02-05 08:00 | WPDANLDPN2 ---
Anes-Prog Note L&D Date/Time: 02/05/24 08:00 Comfortable throughout: labor and delivery Neuraxial method: epidural Epidural/Spinal procedure site: clean & non-tender Neuro status: Neuro function grossly intact. Cardiovascular status: normal Respiratory status: normal Airway patency: baseline Mental status: baseline Post-Op hydration status: normal Vital Signs: Last Vital Signs Temp 37.0 C 02/04/24 21:29 Pulse 98 02/04/24 21:29 Resp 16 02/04/24 21:29 BP 123/86 02/04/24 21:29 Pulse Ox 100 02/04/24 21:29 O2 Del Method Room Air 02/04/24 17:10 Pain score (VAS): 2/10 I/O: Intake & Output 02/04/24 02/05/24 02/05/24 23:59 07:59 15:59 Intake Total 100 Output Total 100 Balance 0 Post-procedural complaints: none Patient feedback: Patient satisfied with anesthetic care.
--- NOTE | 2024-02-05 08:40 | PM.OBPNVD ---
OB - PN: Subj Subjective Date/time seen: 02/05/24 08:40 Narrative: Pain OK. Some elevated bp readings yesterday that seemed to be pain-related. BP better today. OB - PN: Obj Data Labs 02/05/24 04:22 02/05/24 04:22 Labs: Laboratory Results - last 24 hr 02/05/24 04:22 Hgb 9.6 L Hct 28.9 L Sodium 134 L Potassium 4.1 Chloride 107 Carbon Dioxide 19 L Anion Gap 8 BUN 9 Creatinine 0.50 L Estim Creat Clear Calc 159 Estimated GFR > 60 Glucose 126 H Uric Acid 3.8 Calcium 8.2 L Total Bilirubin 0.2 AST 29 ALT 18 Alkaline Phosphatase 99 Total Protein 6.0 L Albumin 2.9 L OB - PN A/P Plan day: 1 Comments: A: PPD#1, doing well. P: Routine care. Exam Psych: Other: AVSS ABD soft, nontender, fundus firm EXT nontender
[2024-02-05] MEDS: MULTIVIT/MIN/PREN/FOL AC/IRON TABLET 1 TAB PO (08:52)
[2024-02-05] MEDS: POLYSACCHARIDE IRON COMPLEX 150 MG CAPSULE PO ×2 (08:52→16:48)
--- NOTE | 2024-02-05 11:20 | PC.NURSE ---
Checked in with mother regarding feedings. She is trying to rest at this time but baby did breastfeed at 0900 for 15 minutes. folder given with handouts including hand expression, is baby getting enough, and recognizing feeding cues. Mom knows support is available to her and she will call out as needed for assistance or questions. Reported to Primary RN.
[2024-02-05 12:17] VITALS: BP 116/76; PULSE 86; RESP 16; TEMP 36.9; O2SAT 99
--- NOTE | 2024-02-05 12:50 | PC.NURSE ---
Primary RN called to say is very sleepy and mom is trying skin to skin to wake her up. When entering the room, baby was skin to skin and still sleeping. We removed her from mom and tickled her, talked to her, and changed positions to assist in waking. Mom usually feeds in football, but decided to try a different position this time. Observed mother latching to the [right] breast in [cross cradle] position. Infant [was] able to maintain an appropriate latch. Mother [complains of] nipple discomfort [with initial latch on and throughout feeding]. She says it is ok, its not too painful, and we observed that infants mouth is wide and her lips are flanged. Encouraged mother to keep awake and nursing at the breast for 15 minutes. Mother taught to listen for swallowing during feedings and we saw and heard frequent swallows. Reassured mom that baby is doing everything we expect a to do. Mother voiced understanding of the education shared, to call for assistance if the infant does not latch or if there is discomfort with . name/number on communication board. Reported to the Primary RN.?
[2024-02-05] MEDS: WITCH HAZEL 40 PADS 1 PAD TOPICAL (16:48)
[2024-02-05 19:13] VITALS: BP 142/87; PULSE 81; RESP 20; TEMP 36.4; O2SAT 98
[2024-02-06] MEDS: MULTIVIT/MIN/PREN/FOL AC/IRON TABLET 1 TAB PO (07:09)
[2024-02-06] MEDS: POLYSACCHARIDE IRON COMPLEX 150 MG CAPSULE PO (07:09)
[2024-02-06] MEDS: BENZOCAINE 20% AER SPR (*SP) 56 GM CAN 1 SPRAY TOPICAL (07:10)
[2024-02-06] MEDS: DOCUSATE SODIUM 100 MG CAPSULE PO (07:10)
[2024-02-06] MEDS: WITCH HAZEL 40 PADS 1 PAD TOPICAL (07:10)
[2024-02-06 07:13] VITALS: BP 132/89; PULSE 81; RESP 14; TEMP 36.3; O2SAT 98
--- NOTE | 2024-02-06 08:36 | PM.OBPNVD ---
OB - PN: Subj Subjective Date/time seen: 02/06/24 08:36 Narrative: Pain OK. Would like to go home. OB - PN: Obj Data Labs 02/05/24 04:22 02/05/24 04:22 OB - PN A/P Plan Comments: A: PPD#2, doing well. P: Home to f/u 6 weeks. Exam Psych: Other: AVSS ABD soft, nontender, fundus firm EXT nontender
--- NOTE | 2024-02-06 08:54 | PC.NURSE ---
On 02/06/24, the student, Mckenna Carroll, provided care and completed [facility] documentation on this patient. I have reviewed the student's documentation and agree with the findings.
--- NOTE | 2024-02-06 10:00 | PC.NURSE ---
0700 Introductions were made, then consulted with patient to assess needs related to . Discussed with mother her?plans to feed?her infant and the?experience so far. Mother had said that baby cluster fed through the night and she did feed a formula bottle early this morning as baby was hard to settle down, RN talked with mother about how to pace bottle feed if she decides to continue to supplement after the breast feedings, mother also has her own breast pump at home if she needs to use it, plan is to go home today. Resources provided for inpatient and outpatient services with the feeding sheet, mom/baby guide and name written on the communication board. Mother voiced understanding of information and will call if there is a request for assistance. Reported to the Primary RN. [phone] Mother called out for assistance, RN encouraged understanding of the benefits of skin to skin (demonstrating unwrapping and placing upright on her chest), stimulating with massage touch, changing positions to encourage wakefulness, how to watch for early feeding cues, responsive feeding, feeding on demand (aiming for 8-12 times in 24 hours, about every 2-3 hours), milk production, building/maintaining a milk supply, duration of feeding, signs of adequate intake/output and how to record on the feeding sheet. Mother works well with her with encouragement and education. Reviewed positioning and ear, shoulder, hip alignment, supporting the breast to facilitate a deep latch, asymmetrical latch (off-center), leading with the chin with a big, open, wide gape and body close to mother. Infant latched optimally to the [right] breast in [cross cradle] position for 10-15 mins and then infant latched to her [left] breast in football position. Education given to the mother of how to visualize the suckling (with good rocking jaw motion), swallows (dropping of the lower jaw) and how to listen for drinking at the breast (the ka sound), RN and mother heard many swallows throughout this feeding. was [able] to maintain latch with lesser pain than mother had experienced with feedings throughout the night. Mother educated on protecting the nipple with optimal positioning and latching. Reviewed comfort measures of healing with a warm, wet washcloth to rinse breast, then leave open to air-dry, good handwashing when or touching the breast/nipples to prevent infection. Mother voiced understanding of skin to skin, stimulating with massage touch, responsive feedings, hand expressed colostrum, talking to to encourage if it has been 2 -2.5 hours since the start of the last , to call if infant does not latch, or if there is discomfort with . Reported to the Primary RN.
[2024-02-07 10:37] VITALS: BP 141/92; PULSE 85; RESP 16; TEMP 36.9; O2SAT 99
== END 2024-02-06 11:13 | disposition home or self-care (01) | DRG 807 ==
LOC: ANHLDR 14:19 → ANHOB2 17:00
PROVIDERS: Admitting Provider Obstetrics & Gynecology; PCP Family Medicine; Visit Provider Obstetrics & Gynecology
DX: O99.824 Streptococcus B carrier state complicating childbirth (principal); Z37.0 Single live birth; Z3A.39 39 weeks gestation of pregnancy; O70.1 Second degree perineal laceration during delivery; O69.81X0 Labor and delivery complicated by cord around neck, without compression, not applicable or unspecified
CPT/HCPCS: 36415; 80053; 84550; 85014; 85018; 85025; 86592; 86703; 86850; 86900; 86901; A9270; G0432; J0290; J2405; J2590; J2795; J7120